=== PATIENT | female | born 1950 | race Caucasian/White ===

== ENCOUNTER 2022-02-17 16:51 | Emergency (ER) | payer OTHER ==
[~2022-02-17 16:51] MED LIST: ALENDRONATE SOD70 MG PO; ASPIRIN EC81 MG PO; CARDIZEM CD120 MG PO; COZAAR50 MG PO; FOLIC ACID1 MG PO; PRAVASTATIN SOD10 MG PO; XALATAN2.5 ML OU
[2022-02-17 17:40] LABS: BASOPHIL 0.2 % (0-2); EOSINOPHIL 0.8 % (0-7); HCT 36.9 % (37.0-47.0); HGB 11.9 g/dl (12.5-16.0); LYMPHOCYTE 14.9 % (15-48); MCH 31.2 pg (25.0-31.0); MCHC 32.2 g/dL (32.0-36.0); MCV 96.9 fL (78.0-100.0); MONOCYTE 5.6 % (0-12); NEUTROPHIL 78.1 % (41-80); NRBC 0; PLT 288 K/uL (150-400); RBC 3.81 M/uL (4.20-5.40); RDW 13.5 % (11.5-14.0); WBC 8.5 K/uL (4.0-10.5)
[2022-02-17 17:57] LABS: INR 0.94 (0.9-1.2)
[2022-02-17 17:58] LABS: PTT 23.9 SECONDS (24.4-34.7)
[2022-02-17 18:07] LABS: BUN/CREAT RATIO (CALC) 16.1 RATIO; CREATININE 1.18 mg/dL (0.51-0.95); POTASSIUM 4.4 mmol/L (3.5-5.1)
[2022-02-17 18:42] LABS: BILIRUBIN NEGATIVE (NEGATIVE); BLOOD 1+ Ery/uL (NEGATIVE); CLARITY CLEAR (CLEAR); COLOR YELLOW (YELLOW); GLUCOSE (U) NORMAL (NORMAL); LEUKOCYTES NEGATIVE Leu/uL (NEGATIVE); NITRITE NEGATIVE (NEGATIVE); PROTEIN NEGATIVE (NEGATIVE); UROBILINOGEN 0.2 mg/dL (0.2-1.0)
[2022-02-17 18:50] LABS: AMORPHOUS URATES CRYSTALS MODERATE; BACTERIA 2+; URINARY WBC RARE
== END 2022-02-17 20:50 | disposition other institution (70) ==
LOC: FER 16:51
PROVIDERS: Emergency Medicine
DX: C71.9 Malignant neoplasm of brain, unspecified (principal); R26.81 Unsteadiness on feet; I12.9 Hypertensive chronic kidney disease with stage 1 through stage 4 chronic kidney disease, or unspecified chronic kidney disease; N18.9 Chronic kidney disease, unspecified; Z88.0 Allergy status to penicillin; Z91.040 Latex allergy status; Z20.822 Contact with and (suspected) exposure to COVID-19
CPT/HCPCS: 36415; 70450; 80048; 81001; 84484; 85025; 85610; 85730; 93005; J1100; J2060; J2270; J2405; U0002

== ENCOUNTER 2022-06-17 04:30 | Emergency (ER) | payer OTHER ==
[2022-06-17 05:33] LABS: BASOPHIL 0.4 % (0-2); EOSINOPHIL 7.4 % (0-7); HCT 33.6 % (37.0-47.0); HGB 11.2 g/dl (12.5-16.0); LYMPHOCYTE 19.5 % (15-48); MCH 33.5 pg (25.0-31.0); MCHC 33.3 g/dL (32.0-36.0); MCV 100.6 fL (78.0-100.0); MONOCYTE 10.8 % (0-12); MPV 9.2 fL (6.0-9.5); NEUTROPHIL 61.2 % (41-80); NRBC 0; PLT 269 K/uL (150-400); RBC 3.34 M/uL (4.20-5.40); RDW 13.3 % (11.5-14.0); WBC 4.6 K/uL (4.0-10.5)
[2022-06-17 05:47] LABS: ALBUMIN 3.3 g/dL (3.4-5.0); BILIRUBIN - TOTAL 0.6 mg/dL (0.2-1.0); BUN/CREAT RATIO (CALC) 6.9 RATIO; CREATININE 1.3 mg/dL (0.51-0.95); GLOBULIN (CALCULATION) 2.6 g/dL; POTASSIUM 3.6 mmol/L (3.5-5.1); TOTAL PROTEIN 5.9 g/dL (6.4-8.2)
[2022-06-17] MEDS ORDERED: VALIUM10 MG PO (06:06)
[2022-06-17 06:12] LABS: CORONAVIRUS 2019 SARS-COV-2 NEGATIVE (NEGATIVE); INFLUENZA A NAA NEGATIVE (NEGATIVE)
== END 2022-06-17 07:01 | disposition home or self-care (01) ==
LOC: FER 04:30
PROVIDERS: Internal Medicine
DX: G47.00 Insomnia, unspecified (principal); F41.9 Anxiety disorder, unspecified; C79.31 Secondary malignant neoplasm of brain; I10 Essential (primary) hypertension; E78.5 Hyperlipidemia, unspecified; Z79.899 Other long term (current) drug therapy; Z20.822 Contact with and (suspected) exposure to COVID-19
CPT/HCPCS: 36415; 80053; 84145; 85025; 99283; U0002

== ENCOUNTER 2022-06-20 16:09 | Emergency (ER) | payer OTHER ==
[~2022-06-20 16:09] MED LIST changes: +VALIUM10 MG PO
[2022-06-20 17:12] LABS: BASOPHIL 0.3 % (0-2); EOSINOPHIL 4.1 % (0-7); HCT 32.5 % (37.0-47.0); LYMPHOCYTE 13.8 % (15-48); MCH 33.8 pg (25.0-31.0); MCHC 33.8 g/dL (32.0-36.0); MONOCYTE 11.6 % (0-12); MPV 9.2 fL (6.0-9.5); NEUTROPHIL 69.4 % (41-80); NRBC 0; PLT 244 K/uL (150-400); RBC 3.25 M/uL (4.20-5.40); RDW 13.2 % (11.5-14.0); WBC 6.1 K/uL (4.0-10.5)
[2022-06-20 17:15] LABS: INR 1.27 (0.9-1.2); PROTHROMBIN TIME 15.5 SECONDS (11.9-13.9)
[2022-06-20 17:16] LABS: PTT 27.2 SECONDS (24.9-34.6)
[2022-06-20 17:58] LABS: ALBUMIN 3.1 g/dL (3.4-5.0); BILIRUBIN - TOTAL 0.3 mg/dL (0.2-1.0); CREATININE 1.27 mg/dL (0.51-0.95); MAGNESIUM 1.6 mg/dL (1.8-2.4); POTASSIUM 3.4 mmol/L (3.5-5.1); TOTAL PROTEIN 6.1 g/dL (6.4-8.2)
[2022-06-20 18:09] LABS: BILIRUBIN 2+ mg/dL (NEGATIVE); BLOOD 1+ Ery/uL (NEGATIVE); CLARITY CLEAR (CLEAR); COLOR YELLOW (YELLOW); GLUCOSE (U) NORMAL (NORMAL); LEUKOCYTES NEGATIVE Leu/uL (NEGATIVE); NITRITE NEGATIVE (NEGATIVE); PROTEIN TRACE (LOW) mg/dL (NEGATIVE); SPECIFIC GRAVITY 1.025 (1.001-1.030)
[2022-06-20 18:09] LABS: CORONAVIRUS 2019 SARS-COV-2 NEGATIVE (NEGATIVE); INFLUENZA A NAA NEGATIVE (NEGATIVE)
[2022-06-20 18:17] LABS: AMORPHOUS URATES CRYSTALS TRACE; BACTERIA TRACE; SQUAMOUS EPITHELIAL CELLS RARE; URINARY WBC RARE
[2022-06-20] MEDS ORDERED: DIAZEPAM 5MG TAB5 MG PO (20:20)
== END 2022-06-20 21:00 | disposition home or self-care (01) ==
LOC: FER 16:09
PROVIDERS: Internal Medicine
DX: F32.A Depression, unspecified (principal); C71.9 Malignant neoplasm of brain, unspecified; I10 Essential (primary) hypertension; Z20.822 Contact with and (suspected) exposure to COVID-19
CPT/HCPCS: 36415; 71250; 80053; 81001; 83605; 83735; 84145; 84484; 85025; 85610; 85730; 87040; 93005; J3475; J7120; U0002

== ENCOUNTER 2022-06-26 05:54 | Emergency (ER) | payer OTHER ==
[~2022-06-26 05:54] MED LIST changes: +DIAZEPAM 5MG TAB5 MG PO
[2022-06-26 06:58] LABS: BASOPHIL 0.3 % (0-2); EOSINOPHIL 1.2 % (0-7); HCT 34.5 % (37.0-47.0); HGB 11.5 g/dl (12.5-16.0); LYMPHOCYTE 13.3 % (15-48); MCH 33.6 pg (25.0-31.0); MCHC 33.3 g/dL (32.0-36.0); MCV 100.9 fL (78.0-100.0); MONOCYTE 7.8 % (0-12); MPV 9.1 fL (6.0-9.5); NEUTROPHIL 76.7 % (41-80); NRBC 0; PLT 310 K/uL (150-400); RBC 3.42 M/uL (4.20-5.40); RDW 13.5 % (11.5-14.0); WBC 6.8 K/uL (4.0-10.5)
[2022-06-26 07:22] LABS: ALBUMIN 3.1 g/dL (3.4-5.0); BILIRUBIN - TOTAL 0.3 mg/dL (0.2-1.0); BUN/CREAT RATIO (CALC) 12.1 RATIO; CREATININE 0.99 mg/dL (0.51-0.95); GLOBULIN (CALCULATION) 3.3 g/dL; POTASSIUM 4.1 mmol/L (3.5-5.1); TOTAL PROTEIN 6.4 g/dL (6.4-8.2)
[2022-06-26 08:07] LABS: BILIRUBIN NEGATIVE (NEGATIVE); BLOOD NEGATIVE Ery/uL (NEGATIVE); CLARITY CLEAR (CLEAR); COLOR YELLOW (YELLOW); GLUCOSE (U) NORMAL (NORMAL); LEUKOCYTES NEGATIVE Leu/uL (NEGATIVE); NITRITE NEGATIVE (NEGATIVE); PROTEIN NEGATIVE (NEGATIVE); SPECIFIC GRAVITY 1.015 (1.001-1.030); UROBILINOGEN 0.2 mg/dL (0.2-1.0); pH 8.5 (5.0-9.0)
[2022-06-26 08:12] LABS: BACTERIA TRACE
[2022-06-26] MEDS ORDERED: PREDNISONE 20MG20 MG PO (12:03)
== END 2022-06-26 14:15 | disposition home or self-care (01) ==
LOC: FER 05:54
PROVIDERS: Emergency Medicine
DX: C71.9 Malignant neoplasm of brain, unspecified (principal); N18.9 Chronic kidney disease, unspecified; Z88.0 Allergy status to penicillin; Z88.8 Allergy status to other drugs, medicaments and biological substances
CPT/HCPCS: 36415; 70553; 80053; 81001; 85025; A9579; J1100; J2060; J2405; J7030